=== PATIENT | male | born 1990 | race Caucasian/White ===

== ENCOUNTER 2018-02-03 11:39 | Emergency (ER) | payer OTHER ==
[~2018-02-03] VITALS: Ht 160 cm; Wt 66.4 kg
[~2018-02-03 11:39] MED LIST: IBUP-103 PO; ONDA4TAB7 SL; PRLSR20 PO; RANI150T3 PO
[2018-02-03 11:56] VITALS: TEMP 36.6; Ht 160 cm; Wt 66.4 kg
[2018-02-03] MEDS ORDERED: IBUPROFEN 800 MG TAB PO STA (12:11)
[2018-02-03] MEDS ORDERED: LIDOCAINE/EPINEPH/TETRACAINE 1 EA SYR EXT STA (12:11)
[2018-02-03] MEDS ORDERED: CIPROFLOXACIN 500 MG TAB PO STA (12:11)
[2018-02-03] MEDS ORDERED: DIPHTHERIA/TETANUS/PERTUSSIS 0.5 ML SYR/VIAL IM. ONE (12:15)
--- NOTE | 2018-02-03 12:28 | DIAGNOSTIC IMAGING REPORT ---
R FOOT MIN 3 VIEWS ROUTINE HISTORY: 27 years-old Male right foot pain, wire through/through 3rd metatarsal acute right foot pain COMPARISON: None available TECHNIQUE: 3 views of the right foot FINDINGS: Markers noted along the plantar foot level of the metatarsophalangeal joints. No associated radiopaque foreign body, acute fracture or dislocation. There is mild soft tissue swelling. IMPRESSION: Mild plantar soft tissue swelling at the level of the metatarsal phalangeal joints without acute fracture or opaque foreign body. The above report was generated using voice recognition software. It may contain grammatical, syntax or spelling errors. Electronically signed by: Gregg Dudley M.D. 02/03/2018 12:26 PM Dictated Date/Time: 02/03/2018 12:25 PM
--- NOTE | 2018-02-03 12:50 | EMERGENCY ROOM VISIT NOTE ---
ED Visit Note First contact with patient: 12:01 CHIEF COMPLAINT: Right Foot pain, puncture wound HISTORY OF PRESENT ILLNESS: This 27-year-old male patient presents to the emergency department, ambulatory, complaining of a puncture wound through the right foot. The patient states he was stomping on dirt around a tree at work, when he stepped on a tree basket wire. He works at [employer]. The patient states the wire immediately punctured through his sneaker and through his foot in the area of the third metatarsal, extending out the other end. He states he was able to remove his foot from the basket, and denies any retained foreign body. He denies any previous injury or fracture to this foot. He continues to complain of significant amount of pain in the area and is having difficulty with ambulation. He does report some swelling and mild bleeding. The patient rates the pain as sharp and 10/10. The patient has not had relief of the pain. The patient is able to walk. No numbness or weakness. No ankle pain. There are small puncture wounds on the dorsal and plantar aspect of the foot in the area of the third metatarsal. The patient is able to move all of their toes and their ankle without pain. REVIEW OF SYSTEMS: GENERAL: A 6 system review of systems was completed with positives and pertinent negatives in the HPI. ALLERGIES: None MEDICATIONS: None PMH: None SOCIAL HISTORY: The patient lives locally with family. He denies drug, alcohol , tobacco use. PHYSICAL EXAM: Vital Signs: Reviewed Nurse's notes, vital signs stable. GENERAL : This is a 27-year-old white male, in no acute distress, but appears in pain, well-developed, well-nourished. SKIN: There are 2 small puncture wounds, one on the dorsal and one on the plantar aspect of the right foot. These are approximately 1 mm in diameter. There is no obvious retained foreign body. There is mild erythema surrounding the puncture wounds. There is significant tenderness in the area of the wounds and over the third metatarsal. MUSCULOSKELATAL: There is no erythema or ecchymosis except as noted. There is no warmth. There is tenderness and swelling over the dorsal aspect of the right foot. There is no tenderness over the lateral or medial malleolus. No tenderness of the tib/fib. The range of motion of the toes and ankle is full. There is no tenderness over the plantar fascia. The skin is intact and there are no lacerations or puncture wounds. Dorsalis pedis pulse 2+. Capillary refill less than 2 seconds. RADIOLOGY: R FOOT MIN 3 VIEWS ROUTINE HISTORY: 27 years-old Male right foot pain, wire through/through 3rd metatarsal acute right foot pain COMPARISON: None available TECHNIQUE: 3 views of the right foot FINDINGS: Markers noted along the plantar foot level of the metatarsophalangeal joints. No associated radiopaque foreign body, acute fracture or dislocation. There is mild soft tissue swelling. IMPRESSION: Mild plantar soft tissue swelling at the level of the metatarsal phalangeal joints without acute fracture or opaque foreign body. The above report was generated using voice recognition software. It may contain grammatical, syntax or spelling errors. Electronically signed by: Gregg Dudley M.D. 02/03/2018 12:26 PM Dictated Date/Time: 02/03/2018 12:25 PM EMERGENCY DEPARTMENT COURSE: I examined the patient. Let gel was applied to the wound and allowed to sit for approximately 30 minutes. The patient was given a Tdap injection and 800 mg ibuprofen for his pain. He was given his first dose of Ciprofloxacin for prophylaxis. An X-ray of the right foot was reviewed by myself and radiologist and reveals no acute fracture or retained foreign body. There is mild plantar soft tissue swelling at the metatarsophalangeal joints. The wound was cleansed with Betadine and flushed with copious amounts of sterile saline solution. The wounds were bandaged with bacitracin ointment and gauze. The patient was instructed on the use of crutches. The patient was discharged home in good condition. I attest that I have personally reviewed the patient's current medication list. Blood Pressure Screening: Patient was found to have a slightly elevated blood pressure due to circumstances. I do not believe that the patient requires hypertension monitoring. DIAGNOSIS: Puncture wound right foot The chart was completed utilizing [employer] voice recognition software. Grammatical errors, random word insertions, pronoun errors, and incomplete sentences are an occasional consequence of this system due to software limitations, ambient noise, and hardware issues. Any formal questions or concerns about the content, text, or information contained within the body of this dictation should be directly addressed to the provider for clarification. Problem List Medical Problems: (1) Concussion Status: Resolved Current/Historical Medications Scheduled Ciprofloxacin (Ciprofloxacin HCl), 1 TAB PO BID Scheduled PRN Oxycodone Ir (Roxicodone Ir), 1 TAB PO Q4-6H PRN for Pain Allergies Coded Allergies: No Known Allergies (Verified , 02/03/18) Vital Signs Date Time Temp Pulse Resp B/P (MAP) Pulse Ox O2 Delivery O2 Flow Rate FiO2 02/03/18 13:32 69 18 151/87 98 02/03/18 11:56 36.6 69 18 151/87 98 Room Air Medications Administered Medications (Trade) Dose Ordered Sig/[place] Route Start Time Stop Time Status Last Admin Dose Admin Ciprofloxacin (Cipro Tab) 750 mg NOW STAT PO 02/03/18 12:11 02/03/18 12:14 DC 02/03/18 12:30 750 MG Tetracaine/ Epinephrine/ Lidocaine (L.e.t. Gel 4%/ 1:100/0.5%) 1 ea UD STAT EXT 02/03/18 12:11 02/03/18 12:14 DC 02/03/18 12:29 1 EA Diphtheria/ Pertussis/Tetanus Vacc (Adacel Inj) 0.5 ml ONCE ONCE IM. 02/03/18 12:15 02/03/18 12:16 DC 02/03/18 12:30 0.5 ML Ibuprofen (Motrin Tab) 800 mg NOW STAT PO 02/03/18 12:11 02/03/18 12:14 DC 02/03/18 12:31 800 MG Departure Information Impression Primary Impression: Puncture wound of foot, right Dispostion Home / Self-Care Condition GOOD Prescriptions Oxycodone Ir (Roxicodone Ir) 5 Mg Tab 1 TAB PO Q4-6H Y for Pain, #10 TAB For Initial Treatment Prov: Cecy Farr PA-C 02/03/18 Ciprofloxacin (Ciprofloxacin HCl) 750 Mg Tab 1 TAB PO BID for 7 Days, #13 TABS Prov: Cecy Farr PA-C 02/03/18 Referrals No Doctor, Assigned (PCP) Patient Instructions ED Wound Puncture Foot, My [facility] Additional Instructions You were seen in the ED today for a puncture wound of the right foot. This was x-rayed with no acute fracture or retained foreign body noted. The wound was cleansed and bandaged. You were given your first dose of antibiotics here in the emergency department. You were prescribed Cipro to be taken twice daily, Q12 hours. This is an antibiotic. All antibiotics have the potential to cause diarrhea. Stop this medication and contact a medical provider if you were to develop any significant adverse side effects including: wheezing, shortness of breath, passing out, vomiting, or a diffuse rash. Always take antibiotics as directed and COMPLETE the ENTIRE course regardless of the improvement of your symptoms. Proper wound care is essential for adequate wound healing and infection prevention. You can shower and clean the wound with soap and water. Do not scour over the wound, pat dry with a towel. Do not submerse the wound (i.e. bathe or dish wash) until the wound has fully healed. You can use an antibiotic ointment with a dressing over the wound for the next 3-4 days. After this time you may leave the wound dry and open to the air. Ibuprofen(Motrin, Advil) may be used for fever or pain. Use 600mg every six hours as needed. Take with food. Avoid using more than 2400mg in a 24 hour period. Do not use 2400mg per day for more than three consecutive days without physician direction. Prolonged inappropriate use can lead to stomach upset or ulcers. (AND/OR) Acetaminophen(Tylenol) may be used for fever or pain. Use 1000mg every six hours as needed. Avoid using more than 3000mg in a 24 hour period. Oxycodone (OxyIR) 5mg: Take 1 pills every four to six hours as needed for breakthrough pain. Avoid alcohol, operating machinery or dangerous equipment, working on ladders or roofs, DRIVING, or situations where being under the influence may be dangerous. It is recommended to use a stool softener such as Colace, 100mg twice daily while taking this medication to avoid constipation. Follow-up with your PCP/worker's compensation provider within 2-3 days for re- check of the wound. You may return to work on if symptoms have improved and wounds are healing. Return to the ED for worsening redness, pain, severe purulent drainage, fever, chills, nausea, vomiting, or other concerning/worsening symptoms. Problem Qualifiers Primary Impression: Puncture wound of foot, right Encounter type: initial encounter Qualified Codes: S91.331A - Puncture wound without foreign body, right foot, initial encounter
[2018-02-03] MEDS ORDERED: OXYC1TAB3 PO (13:20)
[2018-02-03] MEDS ORDERED: CPR750 PO (13:20)
[2018-02-03 13:32] VITALS: BP 151/87; PULSE 69; O2SAT 98
== END 2018-02-03 13:34 | disposition home or self-care (01) ==
LOC: C.EDB 11:41 → C.EDD 13:34
DX: S91.331A Puncture wound without foreign body, right foot, initial encounter (principal); W45.8XXA Other foreign body or object entering through skin, initial encounter; Y92.89 Other specified places as the place of occurrence of the external cause; Y99.0 Civilian activity done for income or pay